=== PATIENT | male | born 1995 | race Caucasian/White ===

== ENCOUNTER 2017-03-15 13:30 | Emergency (ER) | payer BC ==
[~2017-03-15] VITALS: Ht 175.3 cm; Wt 82.4 kg
[2017-03-15 13:39] VITALS: TEMP 36.9; Ht 175.3 cm; Wt 82.4 kg
[2017-03-15] MEDS ORDERED: SODIUM CHLORIDE 0.9% 1000ML 1,000 ML IV STA ×2 (14:40→15:04)
[2017-03-15 15:10] LABS: URINE APPEARANCE CLEAR (CLEAR); URINE COLOR DK YELLOW; URINE EPITHELIAL CELL AUTO 0-5 /lpf (0-5); URINE NITRITE POS (NEG); URINE PH 6.5 (4.5-7.5); URINE SPECIFIC GRAVITY 1.027 (1.000-1.030); UROBILINOGEN POS (NEG); ZZUR CULT IF INDIC CLEAN CATCH NO
[2017-03-15 15:12] LABS: HEMATOCRIT 46.8 % (42-52); MEAN CORPUSCULAR HGB CONC 35.7 g/dl (32-36); MEAN PLATELET VOLUME 9.5 fL (7.4-10.4); PLATELET COUNT 160 K/uL (130-400); RED BLOOD COUNT 5.38 M/uL (4.7-6.1); WHITE BLOOD COUNT 15.66 K/uL (4.8-10.8)
[2017-03-15] MEDS ORDERED: MONT1TAB3 PO (15:13)
[2017-03-15] MEDS ORDERED: FLUT0.15 (15:13)
[2017-03-15] MEDS ORDERED: DIPH1TAB PO (15:13)
[2017-03-15] MEDS ORDERED: CETI10TA84 PO (15:13)
[2017-03-15 15:24] LABS: MANUAL MICROSCOPIC REQUIRED? NO; REVIEW REQ? NO; URINE BILIRUBIN 3+ (NEG)
[2017-03-15 15:41] LABS: BUN/CREATININE RATIO 8.6 (10-20); CALCIUM 9.1 mg/dl (8.5-10.1); CREATININE 0.86 mg/dl (0.60-1.40); POTASSIUM 3.8 mmol/L (3.5-5.1)
--- NOTE | 2017-03-15 16:46 | DIAGNOSTIC IMAGING REPORT ---
CHEST ONE VIEW PORTABLE CLINICAL HISTORY: Flu-like symptoms. Left upper quadrant pain. COMPARISON STUDY: No previous studies for comparison. FINDINGS: Lung volumes are normal. Lungs are clear. No pneumothorax or pleural effusion is present. Cardiac size is normal. Mediastinal contours are normal. There is no evidence of pulmonary edema. IMPRESSION: No acute cardiopulmonary findings. Electronically signed by: Seun Aguirre M.D. 03/15/2017 4:45 PM Dictated Date/Time: 03/15/2017 4:44 PM
[2017-03-15 16:54] LABS: COMPLETE YES; EOSINOPHIL % 0.9 %; LYMPH ABS # 1.22 K/uL (1.2-3.4); LYMPHOCYTE % 7.8 %; NEUTROPHILS % 19.1 %; VARIANT LYM ABS # 11.04 K/uL; VARIANT LYMPHOCYTE % 70.5 %
--- NOTE | 2017-03-15 17:22 | DIAGNOSTIC IMAGING REPORT ---
ABDOMINAL ULTRASOUND, RIGHT UPPER QUADRANT HISTORY: Elevated liver function tests. Left upper quadrant pain. COMPARISON: None. FINDINGS: The liver is sonographically normal. There is no biliary ductal dilatation. No gallstones are identified. Gallbladder wall thickness is within normal limits. The pancreas is obscured by overlying bowel gas. There is no right hydronephrosis. IMPRESSION: 1. No significant abnormality identified within the right upper quadrant. 2. Pancreas largely obscured by overlying bowel gas. Electronically signed by: Seun Aguirre M.D. 03/15/2017 5:20 PM Dictated Date/Time: 03/15/2017 5:19 PM
--- NOTE | 2017-03-15 17:23 | DIAGNOSTIC IMAGING REPORT ---
SPLENIC ULTRASOUND CLINICAL HISTORY: Left upper quadrant abdominal pain. COMPARISON STUDY: No previous studies for comparison. FINDINGS: The spleen is moderately enlarged, measuring 16.3 cm in maximal dimension. An adjacent 3.7 cm splenule is noted. There is no perisplenic fluid. No splenic lesion is identified. IMPRESSION: Moderate splenomegaly. No perisplenic fluid. Electronically signed by: Seun Aguirre M.D. 03/15/2017 5:21 PM Dictated Date/Time: 03/15/2017 5:20 PM
[2017-03-15 18:26] LABS: INR 1.1 (0.9-1.1); PARTIAL THROMBOPLASTIN RATIO 1.1; PROTHROMBIN TIME (PATIENT) 12.3 SECONDS (9.0-12.0)
[2017-03-15] MEDS ORDERED: ONDANSETRON HOME PACK 4MG OD TAB PO ONE (20:30)
[2017-03-15] MEDS ORDERED: OXYMETAZOLINE HCL 0.05% NA SPR 15 ML BTL ONE (20:30)
[2017-03-15 20:44] VITALS: BP 126/65; PULSE 98; O2SAT 95
--- NOTE | 2017-03-15 23:36 | EMERGENCY ROOM VISIT NOTE ---
History Report prepared by Madhu: Chau Butler Under the Supervision of: Dr. Barron Tovar M.D. First contact with patient: 14:40 Chief Complaint: VOMITING Stated Complaint: CONGESTION, SORE THROAT, VOMITING, EXHAUSTION History of Present Illness The patient is a 21 year old male who presents to the Emergency Room with complaints of constant sore throat that began a couple of weeks ago. He rates his pain as a 7/10 in severity. The patient states that he has been ill and experiencing a sore throat, which he went to [facility] for. He reports that he had a strep test done, which was negative. The patient states that he went to [facility] yesterday because his symptoms persisted, but his mono and strep test were negative. He reports that he was given two new prescriptions at [facility], including Augmentin and Prednisone. The patient admits he took one Augmentin at 0500 and prednisone around 10 AM. He Vomited two times earlier today shortly after taking the prednisone. The patient reports that his sore throat has worsened today and he has been weak. He also reports that he has been experiencing left sided abdominal tightness whenever he inhales deeply. The patient states that he has been drinking fluids, but admits that his urine has been darker than usual recently. He reports that he has been taking Advil and 3 small doses of NyQuil throughout the week, but denies taking any today. He denies any other Tylenol or acetaminophen-containing products. No heavy alcohol use. The patient reports that he took his temperature, which was 98.5. The patient denies headache, fevers, chills, diaphoresis, visual changes, neck pain, chest pain, breathing difficulties, back pain, melena, hematochezia, urinary symptoms, numbness, lymphadenopathy, rash, joint swelling, or other complaints. Source of History: patient Onset: a couple of weeks ago Position: throat Symptom Intensity: 7/10 Quality: other (sore) Timing: constant Modifying Factors (Relieving): other (Advil, Augmentin, Prednisone) Associated Symptoms: + nausea, + vomiting, + abdominal pain, + weakness Review of Systems See HPI for pertinent positives and negatives. A total of ten systems were reviewed and were otherwise negative. Past Medical & Surgical Surgical Problems: (1) H/O adenoidectomy (2) [place] teeth extracted Family History Patient reports no known family medical history. Social History Smoking Status: Current Some Day Smoker Alcohol Use: occasionally Drug Use: none Marital Status: single Housing Status: lives with roommate Occupation Status: [employer] student Current/Historical Medications Scheduled Cetirizine (Zyrtec), 20 MG PO QAM Diphenhydramine Hcl (Benadryl Allergy), 50 MG PO HS Fluticasone Propionate (Nasal) (Flonase Allergy Relief), 2 SPRAYS NA BID Montelukast Sodium (Singulair), 10 MG PO QAM Allergies Coded Allergies: No Known Allergies (Unverified , 03/15/17) Physical Exam Vital Signs Date Time Temp Pulse Resp B/P (MAP) Pulse Ox O2 Delivery O2 Flow Rate FiO2 03/15/17 20:44 98 20 126/65 95 03/15/17 19:46 73 03/15/17 19:08 69 20 142/94 96 Room Air 03/15/17 17:14 72 15 140/74 99 Room Air 03/15/17 15:33 69 03/15/17 13:39 36.9 84 16 123/79 97 Room Air Physical Exam GENERAL: Awake, alert, mildly ill-appearing, in no distress HENT: Normocephalic, atraumatic. Uvula midline with tonsillar hypertrophy and exudate present. EYES: Normal conjunctiva. Sclera non-icteric. NECK: Supple. No nuchal rigidity. FROM. No JVD. Anterior adenopathy. RESPIRATORY: Clear to auscultation. CARDIAC: Regular rate, normal rhythm. Extremities warm and well perfused. Pulses equal. ABDOMEN: Soft, non-distended. No tenderness to palpation. No rebound or guarding. No masses. No obvious splenomegaly. RECTAL: Deferred. MUSCULOSKELETAL: Chest examination reveals no tenderness. The back is symmetrical on inspection without obvious abnormality. There is no CVA tenderness to palpation. No joint edema. LOWER EXTREMITIES: Calves are equal size bilaterally and non-tender. No edema. No discoloration. NEURO: Normal sensorium. No sensory or motor deficits noted. SKIN: No rash or jaundice noted. Medical Decision & Procedures ER Provider Diagnostic Interpretation: Radiology results as stated below per my review and radiologist interpretation: CHEST ONE VIEW PORTABLE CLINICAL HISTORY: Flu-like symptoms. Left upper quadrant pain. COMPARISON STUDY: No previous studies for comparison. FINDINGS: Lung volumes are normal. Lungs are clear. No pneumothorax or pleural effusion is present. Cardiac size is normal. Mediastinal contours are normal. There is no evidence of pulmonary edema. IMPRESSION: No acute cardiopulmonary findings. Electronically signed by: Seun Aguirre M.D. 03/15/2017 4:45 PM Dictated Date/Time: 03/15/2017 4:44 PM SPLENIC ULTRASOUND CLINICAL HISTORY: Left upper quadrant abdominal pain. COMPARISON STUDY: No previous studies for comparison. FINDINGS: The spleen is moderately enlarged, measuring 16.3 cm in maximal dimension. An adjacent 3.7 cm splenule is noted. There is no perisplenic fluid. No splenic lesion is identified. IMPRESSION: Moderate splenomegaly. No perisplenic fluid. Electronically signed by: Seun Aguirre M.D. 03/15/2017 5:21 PM Dictated Date/Time: 03/15/2017 5:20 PM ABDOMINAL ULTRASOUND, RIGHT UPPER QUADRANT HISTORY: Elevated liver function tests. Left upper quadrant pain. COMPARISON: None. FINDINGS: The liver is sonographically normal. There is no biliary ductal dilatation. No gallstones are identified. Gallbladder wall thickness is within normal limits. The pancreas is obscured by overlying bowel gas. There is no right hydronephrosis. IMPRESSION: 1. No significant abnormality identified within the right upper quadrant. 2. Pancreas largely obscured by overlying bowel gas. Electronically signed by: Seun Aguirre M.D. 03/15/2017 5:20 PM Dictated Date/Time: 03/15/2017 5:19 PM Laboratory Results 03/15/17 14:45 Red Blood Count 5.38, Mean Corpuscular Volume 87.0, Mean Corpuscular Hemoglobin 31.0, Mean Corpuscular Hemoglobin Concent 35.7, Mean Platelet Volume 9.5 03/15/17 14:45 Test 03/15/17 14:40 03/15/17 14:45 03/15/17 17:59 Urine Color DK YELLOW Urine Appearance CLEAR (CLEAR) Urine pH 6.5 (4.5-7.5) Urine Specific [place] 1.027 (1.000-1.030) Urine Protein TRACE (NEG) Urine Glucose (UA) NEG (NEG) Urine Ketones TRACE (NEG) Urine Occult Blood NEG (NEG) Urine Nitrite POS (NEG) Urine Bilirubin 3+ (NEG) Urine Urobilinogen POS (NEG) Urine Leukocyte Esterase SMALL (NEG) Urine WBC (Auto) 0 /hpf (0-5) Urine RBC (Auto) 0-4 /hpf (0-4) Urine Hyaline Casts (Auto) 0 /lpf (0-5) Urine Epithelial Cells (Auto) 0-5 /lpf (0-5) Urine Bacteria (Auto) NEG (NEG) White Blood Count 15.66 K/uL (4.8-10.8) Red Blood Count 5.38 M/uL (4.7-6.1) Hemoglobin 16.7 g/dL (14.0-18.0) Hematocrit 46.8 % (42-52) Mean Corpuscular Volume 87.0 fL (80-100) Mean Corpuscular Hemoglobin 31.0 pg (25-34) Mean Corpuscular Hemoglobin Concent 35.7 g/dl (32-36) Platelet Count 160 K/uL (130-400) Mean Platelet Volume 9.5 fL (7.4-10.4) RDW Standard Deviation 44.4 fL (36.4-46.3) RDW Coefficient of Variation 14.1 % (11.5-14.5) Neutrophils % (Manual) 19.1 % Lymphocytes % (Manual) 7.8 % Variant Lymphocytes % (manual) 70.5 % Monocytes % (Manual) 1.7 % Eosinophils % (Manual) 0.9 % Neutrophils # (Manual) 2.99 K/uL (1.4-6.5) Total Absolute Neutrophils 2.99 K/uL (1.4-6.5) Lymphocytes # (Manual) 1.22 K/uL (1.2-3.4) Absolute Variant Lymphocytes 11.04 K/uL Total Absolute Lymphocytes 12.26 K/uL (1.2-3.4) Monocytes # (Manual) 0.27 K/uL (0.11-0.59) Eosinophils # (Manual) 0.14 K/uL (0-0.5) Anion Gap 8.0 mmol/L (3-11) Est Creatinine Clear Calc Drug Dose 137.1 ml/min Estimated GFR () 144.7 Estimated GFR (Non- 124.8 BUN/Creatinine Ratio 8.6 (10-20) Calcium Level 9.1 mg/dl (8.5-10.1) Total Bilirubin 2.8 mg/dl (0.2-1) Direct Bilirubin 1.9 mg/dl (0-0.2) Aspartate Amino Transf (AST/SGOT) 397 U/L (15-37) Alanine Aminotransferase (ALT/SGPT) 667 U/L (12-78) Alkaline Phosphatase 448 U/L (45-117) Total Creatine Kinase 53 U/L (39-308) Total Protein 8.9 gm/dl (6.4-8.2) Albumin 3.9 gm/dl (3.4-5.0) Lipase 101 U/L (73-393) Monoscreen POS (NEG) Prothrombin Time 12.3 SECONDS (9.0-12.0) Prothromb Time International Ratio 1.1 (0.9-1.1) Activated Partial Thromboplast Time 28.0 SECONDS (21.0-31.0) Partial Thromboplastin Ratio 1.1 Laboratory results reviewed by me Medications Administered Medications (Trade) Dose Ordered Sig/Jennifer Route Start Time Stop Time Status Last Admin Dose Admin Sodium Chloride 1,000 ml @ 999 mls/hr Q1H1M STAT IV 03/15/17 14:40 03/15/17 15:40 DC 03/15/17 14:54 999 MLS/HR Sodium Chloride 1,000 ml @ 999 mls/hr Q1H1M STAT IV 03/15/17 15:04 03/15/17 16:04 DC 03/15/17 15:04 999 MLS/HR Ondansetron HCl (ZOFRAN ODT 4MG Home Pack) 1 homepack UD ONCE PO 03/15/17 20:30 03/15/17 20:31 DC 03/15/17 20:33 1 HOMEPACK Oxymetazoline HCl (Afrin 0.05% Nasal Coy) 1 sprays NOW ONCE NA 03/15/17 20:30 03/15/17 20:31 DC 03/15/17 20:30 1 SPRAYS ED Course 1440: Ordered Sodium Chloride 1000 ml @ 999 mls/hr IV. 1445: The patient was evaluated in room A09B. A complete history and physical exam was performed. 1504: Ordered Sodium Chloride 1000 ml @ 999 mls/hr IV. 1731: I reevaluated the patient and he is doing well. He is getting his fluids. 1751: I discussed the patient's case with Dr. Mari, [facility]. He suggested that I check on the patient's Coagulations and Tylenol level for verification. He also suggests that if the patient worsens, he should come back to the ED. Dr. Mari reports that the patient should have a repeat of his liver functions in three or fours days. If the patient's labs are abnormal, he would like me to call him back. 1755: I reevaluated the patient and he is doing well. He reports that he is hungry. 1753: I reevaluated the patient and updated him on his results. 2013: I reevaluated the patient. Discussed results and discharge instructions: He verbalized understanding and agreement. The patient is ready for discharge. 2029: Ordered Oxymetazoline HCl 1 spray, Ondansetron HCl 1 homepack. Medical Decision Prior records/ancillary studies reviewed. Triage Nursing notes reviewed and agree them. Additional history obtained from the family. The patient's history was concerning for flulike symptoms and sore throat. Differential diagnosis: Etiologies such as mononucleosis, streptococcal pharyngitis, peritonsillar abscess, viral syndrome, retropharyngeal abscess, tonsillitis, otitis, pneumonia, influenza, as well as others were entertained. ER treatment provided: IV hydration with 2 L normal saline Patient declined analgesia On reassessment the patient felt better. Diagnostics interpreted by me: The labs revealed a mild leukocytosis on CBC. Variant lymphocytes on differential. The patient has rather significant elevation of LFTs. Walsh test was positive. Urine test showed nitrate but significant urobilinogen and was heavily colored. There was no white cells or bacteria. He has no urinary symptoms to suggest infection either. The lab was unable to run an acetaminophen level as the patient had hyperbilirubinemia and this was interfering. The patient is adamant that he only took 3 small doses of NyQuil and no other acetaminophen containing products. Imaging studies: Ultrasounds and Chest x-ray as above Consultation: A consultation was placed with gastroenterology, Dr. Mari. The case was discussed. He agreed with conservative management of the patient with close follow-up of his liver functions. The patient has mononucleosis. He has splenomegaly noted on ultrasound. His right upper quadrant ultrasound was unremarkable. He has LFTs are elevated consistent with this viral process. He has a tonsillitis which is also consistent. He notes moderate nasal congestion but has had problems with this in the past. He does have some relief with Sudafed however if he takes a full dose he feels like he gets palpitations and has significant difficulty sleeping. The patient was given Afrin to use just for a few days as he was having trouble sleeping over the last few nights. He was provided with his laboratory studies. I reviewed all of his findings with him and his mother who presented to the Emergency Room. The patient feels very comfortable with conservative management as he has a positive mono test and a clinical picture that is consistent with such I advised him to stop the Augmentin as he is likely to get a rash from the amoxicillin component. He noted stomach upset with the prednisone. It does not sound like an allergic reaction but more of an adverse issue. I said to him that he may use it if he really has a bad sore throat but he notes a sore throat is getting much better. I gave my usual and customary discussion regarding this issue. By the evaluation outlined above emergent etiologies such as peritonsillar abscess, retropharyngeal abscess, otitis, pneumonia, meningitis, urinary tract infection, sepsis, bacteremia, as well as others were deemed relatively unlikely. The patient and mother were informed about the findings as listed above. All questions were answered and they were pleased with the treatment. Return instructions were outlined and the patient was discharged in stable condition. Outpatient prescription management: Stop Augmentin Stop prednisone Referral: The patient was referred back to his primary care physician for follow-up in 2 to 3 days for a recheck of the current condition. Medication Reconcilliation Current Medication List: was personally reviewed by me Blood Pressure Screening Patient's blood pressure: Elevated blood pressure Blood pressure disposition: Elevated BP felt to be situational Consults Time Called: 175 Consulting Physician: Dr. Mari, [facility] Returned Call: 175 I discussed the patient's case with Dr. Mari, [facility]. He suggested that I check on the patient's Coagulations and Tylenol level for verification. He also suggests that if the patient worsens, he should come back to the ED. Dr. Mari reports that the patient should have a repeat of his liver functions in three or fours days. If the patient's labs are abnormal, he would like me to call him back. Impression Primary Impression: Mononucleosis Additional Impressions: Tonsillitis Elevated LFTs Scribe Attestation The scribe's documentation has been prepared under my direction and personally reviewed by me in its entirety. I confirm that the note above accurately reflects all work, treatment, procedures, and medical decision making performed by me. Departure Information Dispostion Home / Self-Care Referrals No Doctor, Assigned (PCP) Forms HOME CARE DOCUMENTATION FORM, IMPORTANT VISIT INFORMATION Patient Instructions Mononucleosis, My [facility] Additional Instructions Stop the Augmentin(amoxicillin clavulanate) and prednisone No alcohol or Tylenol containing products. Ibuprofen(Motrin, Advil) may be used for fever or pain. Use 600mg every six hours as needed. Take with food. Avoid using more than 2400mg in a 24 hour period. Do not use 2400mg per day for more than three consecutive days without physician direction. Prolonged inappropriate use can lead to stomach upset or ulcers. Afrin(oxymetazoline) nasal spray: 2-3 sprays to each nostril twice daily as needed for congestion. Do not use for more than 3-4 days because it can lead to worsening rebound congestion. Pseudoephedrine(Sudaphed): 30-60mg every 6 hours as needed for nasal congestion. Do not take this with other stimulant products or supplements. Zofran 4 mg oral dissolving tablets: take one tablet and allow it to melt in your mouth every 4 hours as needed for nausea. Rest and drink plenty of fluids. Controlling your fever with Ibuprofen as above will make you feel better. Wash your hands after nose blowing, sneezing, or coughing. Most germs are spread through contact, therefore improper hygiene may result in your close contacts and loved ones becoming ill just like you. Return to the ER for severe headache, neck stiffness, chest pain, difficulty breathing, fevers, vomiting, yellowing of your skin, abdominal pain, sinus pain , continued sinus congestion for more than 9-10 days, Worsening of your condition, or as needed. Follow up with your primary physician this week for a recheck of your current condition. Repeat liver function tests are recommended as discussed. Problem Qualifiers
== END 2017-03-15 20:45 | disposition home or self-care (01) ==
LOC: C.EDB 13:32 → C.EDA 20:45
DX: B27.90 Infectious mononucleosis, unspecified without complication (principal); J03.90 Acute tonsillitis, unspecified; R79.89 Other specified abnormal findings of blood chemistry; F17.200 Nicotine dependence, unspecified, uncomplicated; Z90.89 Acquired absence of other organs; Z98.818 Other dental procedure status